=== PATIENT | female | born 2000 | race Caucasian/White ===

== ENCOUNTER 2025-04-27 15:09 | Emergency (ER) | payer OTHER, SELFPAY ==
--- OUTSIDE RECORDS SUMMARY | 2025-03-28 02:30 | XMS_ITS | Continuity of Care Document ---
Author Organization [facility] Address [address] [address] [place] [address] Phone Care Team Providers Care Clinical Specialty Rep Name Role Phone Arnoldo Nguyen DO Unavailable Unavailable Allergies, Adverse Reactions, Alerts Substance Reaction Status Criticality No Known Allergies Active No Inform ation Medications Medication Instructions Dosage Effective Dates (start - stop) Status Comments sertraline 100 mg tablet take 1 tablet by oral route every day 100 MG - Active dicyclomine 10 mg capsule take 1 capsule by oral route 3 times every day 10 MG - Active sertraline 50 mg tablet take 1 tablet by oral route every day 50 MG - No Longer Active Procedures Procedure Date Offic/outpt E&m [facility] Mod-hi 2 25 Colonoscopy Flex; W/bx 1/mx Level Iv-surg Path Gross/micro 25 Offic/outpt E&m New Mod-ne Routine Serum Collection Advance Directives Directive Yes / No Effective Date File Name No Information Encounters Encounter Description Practice Location Reason(s) For Visit Diagnoses Date Provider Providers Copied on Encounter Offic/outpt E&m [facility] Mod-hi 2 [facility], [address] [address], [place], [id number], tel:[phone] [facility] GI Symptoms or Concerns (chief complaint) RLQ abdominal painOther constipation Patrick Skelton. [address] [facility], [address], [place], [id number] , [place]. [phone] Referring Provider: Referral Self, USE FOR SELF REFERRALS. [facility] [place], [address] [address], [place], [id number], [place] tel:[phone] [facility] GI Symptoms or Concerns (chief complaint) Other constipationUnspeci fied abdominal painColorectal polypsBenign neoplasm of descending colonOther constipationUnspeci fied abdominal pain 5 Claudia Palomino. [address] [facility], [facility] [address], [place], [address], [place]. tel: [phone] Referring Provider: Referral Self, USE FOR SELF REFERRALS. [facility] [place], [address] [address], [place], [id number], [place] tel:[phone] [facility] No Information 5 Dandre Baum. [address] [address], [place], [id number] , [place]. tel:[phone] Offic/outpt E&m New Mod-hi [facility] [place], [address] [address], [place], [id number], [place] tel:[phone] [facility] GI Symptoms or Concerns (chief complaint) Intermittent constipationRight sided abdominal pain 4 Patrick Skelton. [address] [facility], [facility] [address], [place], [id number] , [place]. [phone] Referring Provider: Referral Self, USE FOR SELF REFERRALS. [facility] [place], [address] [address], [place], [id number], [place] tel:[phone] [facility] No Information 4 Dandre Baum. [address] [facility] [address], [place], [id number] , [place]. [phone] Family History Family Member Type Diagnosis Age At Onset Father Problem (finding) GERD Immunizations Vaccine Date Status Comments tetanus toxoid, reduced diphtheria toxoid, and acellular pertussis vaccine, adsorbed administered Note: [facility] b i-directional interface ; Source: Other Registry SARS-COV-2 (COVID-19) vaccin e, mRNA, spike protein, LNP, preservative free, 100 mcg/0.5mL dose or 50 mcg/0.25mL dose administered Note: [facility] bi -directional interface ; Source: Other Registry SARS-COV-2 (COVID-19) vaccin e, mRNA, spike protein, LNP, preservative free, 30 mcg/0.3mL dose administered Note: [facility] bi-direct ional interface ; Source: Other Registry SARS-COV-2 (COVID-19) vaccin e, mRNA, spike protein, LNP, preservative free, 30 mcg/0.3mL dose administered Note: [facility] bi-direct ional interface ; Source: Other Registry Human Papillomavirus 9-olya t vaccine administered Note: [facility] bi-direct ional interface ; Source: Other Registry Havrix pediatric administered Note: [facility] bi-directional interface ; Source: Other Registry meningococcal polysaccharide (groups A, C, Y and W-135) diphtheria toxoid conjugate vaccine (MCV4P) administered Note: [facility] bi-direct ional interface ; Source: Other Registry tetanus toxoid, reduced diphtheria toxoid, and acellular pertussis vaccine, adsorbed administered Note: [facility] b i-directional interface ; Source: Other Registry meningococcal oligosaccharid e (groups A, C, Y and W-135) diphtheria toxoid conjugate vaccine (MCV4O) administered Note: [facility] bi-direct ional interface ; Source: Other Registry human papilloma virus vaccin e, quadrivalent administered Note: [facility] bi-direct ional interface ; Source: Other Registry Havrix administered Note: [facility] bi-d irectional interface ; Source: Other Registry diphtheria, tetanus toxoids and pertussis vaccine administered Note: [facility] bi-direct ional interface ; Source: Other Registry measles, mumps, rubella, and varicella virus vaccine administered Note: [facility] bi-di rectional interface ; Source: Other Registry poliovirus vaccine, inactivated administe red Note: [facility] bi- directional interface ; Source: Other Registry diphtheria, tetanus toxoids and pertussis vaccine administered Note: [facility] bi-direct ional interface ; Source: Other Registry diphtheria, tetanus toxoids and acellular pertussis vaccine administered Note: [facility] b i-directional interface ; Source: Other Registry poliovirus vaccine, inactivated administe red Note: [facility] bi- directional interface ; Source: Other Registry poliovirus vaccine, inactivated administe red Note: [facility] bi- directional interface ; Source: Other Registry diphtheria, tetanus toxoids and acellular pertussis vaccine administered Note: [facility] b i-directional interface ; Source: Other Registry Haemophilus influenzae type b conjugate and Hepatitis B vaccine administered Note: [facility] bi- directional interface ; Source: Other Registry Pneumovax administered Note: [facility] bi-d irectional interface ; Source: Other Registry measles, mumps and rubella v irus vaccine administered Note: [facility] bi-direct ional interface ; Source: Other Registry varicella virus vaccine administered Note : [facility] bi-directional interface ; Source: Other Registry Pneumovax administered Note: [facility] bi-d irectional interface ; Source: Other Registry Engerix-B administered Note: [facility] bi-d irectional interface ; Source: Other Registry poliovirus vaccine, inactivated administe red Note: [facility] bi- directional interface ; Source: Other Registry Pneumovax administered Note: [facility] bi-d irectional interface ; Source: Other Registry Haemophilus influenzae type b vaccine, PRP-T conjugate administered Note: [facility] bi-d irectional interface ; Source: Other Registry diphtheria, tetanus toxoids and acellular pertussis vaccine administered Note: [facility] b i-directional interface ; Source: Other Registry Engerix-B administered Note: [facility] bi-d irectional interface ; Source: Other Registry Pneumovax administered Note: [facility] bi-d irectional interface ; Source: Other Registry poliovirus vaccine, inactivated administe red Note: [facility] bi- directional interface ; Source: Other Registry diphtheria, tetanus toxoids and acellular pertussis vaccine administered Note: [facility] b i-directional interface ; Source: Other Registry Haemophilus influenzae type b vaccine, PRP-T conjugate administered Note: [facility] bi-d irectional interface ; Source: Other Registry Payers Payer name Insurance type Covered democrat ID Maria A keita(carola Cruz [id number] Social History Type Description Quantity Date Captured Comments Alcohol Use Details Unknown Caffeine Use Details Unknown Tobacco Use Status No Information Smoking Status No Information Sex Female Vital Signs Date / Time: Height Weight BMI Pulse Rate Blood Pressure Temperature Respiratory Rate Body Surface Area Head Circumference Head Circ. Percentile Wt./Magnus. Percentile BMI percentile Pulse Ox Inhaled Ox 7:35 AM 66.00 in 132.222 kg (291.50 lbs) 47.0 5 kg/m eter (2) 73 /min 136/63 mm[Hg] Chief Complaint And Reason For Visit From encounter dated '03/28/2025 07:30'. GI Symptoms or Concerns (chief complaint). Description: This is a pleasant 25-year-old female established patient returning for follow-up of constipation and right lower quadrant discomfort. Patient was last seen in September of last year after which time she had some basic labs completed which wereunremarkable. She did underwent a colonoscopy in November of this year which was notable for a subcentimeter adenomatous polyp but was otherwise endoscopically unremarkable. Since her last appointmentshe has continued a high-fiber diet and use of MiraLAX and with this is having on average 2 bowel movements per day. She is not appreciating any straining and rarely any incomplete evacuation. The stool is not hard or pebble-like either. Despite the improvement in the bowel movements, whereas previously she could go 1 week without a bowel movement, she still has ongoing right lower quadrant abdominal pain. It remains intermittent but generally occurs daily. As previously noted it can radiate into the right upper quadrant can also radiate into the back and down into the leg. She did try peppermint oil but this was an abbreviated trial due to increased heartburn symptoms when taking it.As noted her previous appointment she has undergone extensive evaluation including CT scan and ultrasound in addition to multiple other labs and evaluation of her symptoms and have been unremarkable. Reason For Referral Reason For Referral No Information Plan Of Treatment Date Type Action Status Referral Ordered: Colonoscopy Appointment date/timeframe: 11/30/2024 ordered History Of Present Illness Encounter Date Complaint History Of Prese nt Illness GI Symptoms or Concerns This is a pleasant 25-year-old female established patient returning for follow-up of constipation and right lower quadrant discomfort. Patient was last seen in September of last year after which time she had some basic labs completed which were unremarkable. She did underwent a colonoscopy in November of this year which was notable for a subcentimeter adenomatous polyp but was otherwise endoscopically unremarkable. Since her last appointment she has continued a high-fiber diet and use of MiraLAX and with this is having on average 2 bowel movements per day. She is not appreciating any straining and rarely any incomplete evacuation. The stool is not hard or pebble-like either. Despite the improvement in the bowel movements, whereas previously she could go 1 week without a bowel movement, she still has ongoing right lower quadrant abdominal pain. It remains intermittent but generally occurs daily. As previously noted it can radiate into the right upper quadrant can also radiate into the back and down into the leg. She did try peppermint oil but this was an abbreviated trial due to increased heartburn symptoms when taking it.As noted her previous appointment she has undergone extensive evaluation including CT scan and ultrasound in addition to multiple other labs and evaluation of her symptoms and have been unremarkable. GI Symptoms or Concerns GI Symptoms or Concerns This is a pleasant 24-year-old female who self refers for evaluation of constipation and right-sided abdominal discomfort. Patient reports that for the past 6 weeks she has been struggling with constipation. She reports a baseline bowel habit of 2-3 bowel movements per day. However in early August she started appreciating 5-6 bowel movements per day and then all of a sudden she stopped going. She went almost 2 weeks with out a bowel movement and to compensate started using [id number] laxatives. Unfortunately she then developed significant right-sided abdominal pain that worsened over time prompting an ER visit in [place] and those records were reviewed. She did end up getting an abdominal x-ray and CT scan showing no acute findings or concerns. For her symptoms she did try magnesium citrate but did not like the way this made her body feel. She tried milk of magnesia with no change. She is now using MiraLAX 1 capful twice daily and consuming 25 to 35 g/day along with 120 ounces of water. This has helped regarding the bowel movements and is having more regularity, good volume, and soft stool. She does however report continued difficulty getting the stool out and sometimes feels as though it is trapped in the pelvis. She will have some incomplete evacuation and feels the caliber of the stool has changed as well.She still experiences right-sided abdominal discomfort. This comes and goes and does not really change with passage of gas. She may note slight improvement after bowel movement and then within minutes reoccurs. The discomfort is generally in the right lower quadrant but can radiate into the right upper quadrant, to the lower back, and down the right leg. She did have a TSH and fecal calprotectin completed through her primary office that she reports is being normal. She also completed a bowel purge which she felt was helpful but did not affect the discomfort. She has never had a colonoscopy. Functional Status Date Functional Assessmen t No Information Instructions Date Instruction Additional Infor jude Colon Polyps Related to Color ectal polyps Colon Cancer Prevention Related to Colorectal polyps Colon Polyps Related to Color ectal polyps Assessments Type Assessment Date assessment RLQ abdominal pain assessment Other constipation impression This is a pleasant [age]-year-old female with a history of constipation and right lower quadrant abdominal pain. Fortunately we have made significant improvements regarding her bowel habits both in terms of frequency, consistency, and Evac patient but unfortunately the pain syndrome still persist. This very well could suggest that the 2 symptoms are not directly related to each other. With the pain syndrome rating into the leg this is also atypical for most visceral abdominal pain syndromes. We will however try dicyclomine at this time but should this not improve her symptoms I have recommended that she follow-up with her primary to consider spinal evaluation or other potential neurological or neuromuscular cause. Patient Care Teams Name Effective Dates (start - stop) Status Members No Information
[2025-04-27] VITALS (13 sets, daily range): BP systolic 97–136; BP diastolic 43–83; PULSE 73–84; RESP 10–32; TEMP 36.7; O2SAT 99–100; BMI 47.8
--- NOTE | 2025-04-27 16:02 | CRLHL7_ITS ---
For Patients: As a result of the Cures Act, medical imaging exams and procedure reports are released immediately into your electronic medical record. You may view this report before your referring provider. If you have questions, please contact your health care provider. INDICATION: : CHEST PAIN COMPARISON: None TECHNIQUE: Two view(s) of the chest FINDINGS: The cardiomediastinal silhouette and pulmonary vasculature are unremarkable. There is no focal airspace consolidation, pleural effusion, or pneumothorax. No displaced fractures. IMPRESSION: No acute cardiopulmonary process. Dictated by Moy Rizzo MD @ 04/27/2025 5:05:27 PM (Electronically Signed)
--- NOTE | 2025-04-27 16:23 | ED_ITS ---
HPI - Chest Pain General Date Seen: 04/27/25 Chief Complaint: Chest Pain Stated Complaint: Chest pain, short of breath Time Seen by Provider: 04/27/25 15:34 Source: patient Mode of arrival: ambulatory Limitations: no limitations History of Present Illness HPI narrative: Patient is a 25-year-old female presenting to the emergency department for chest pain. She has been having chest pain for the past 2 weeks but felt acutely get worse today while she was driving. States the pain radiated to her right arm and neck and she got dizzy. Due to this she decided to come in to get checked out. States currently the pain is a 6/10. Does seem improved compared to when she was driving. Denies symptoms like this before. Does notice some pain in her chest when she presses on it. No history of heart disease. No recent surgeries. Denies history of cancer. Denies history of blood clots. Denies hemoptysis, abdominal pain, weakness, numbness, headache, vision changes, hormone use, diarrhea, constipation, lower extremity swelling. No other concerns noted at this time. Related Data Home Medications ?Medication ?Instructions ?Recorded ?Confirmed omeprazole .ROUTE 04/27/25 sertraline .ROUTE 04/27/25 Allergies Allergy/AdvReac Type Severity Reaction Status Date / Time No Known Drug Allergies Allergy Verified 04/27/25 15:26 Review of Systems Status of ROS Reports: 10 or more systems reviewed and unremarkable except as noted in History and below Exam Narrative Exam Narrative: Const: Well-nourished, Well-developed, in mild distress Eyes: PERRL, no conjunctival injection, and symmetrical lids HENT: Atraumatic external nose and ears. Moist mucous membranes. Neck: Symmetric, trachea midline, No thyromegaly. CVS: RRR, No murmurs or gallops. Peripheral pulses 2+ and equal in all extremities RESP: Unlabored respiratory effort. Clear to auscultation bilaterally. GI: Nontender/Nondistended, No rebound or guarding. MSK:Extremities w/o deformity, Normal Active ROM, tenderness to palpation of her chest that exactly reproduces her pain. Skin: Warm, Dry. No rashes or lesions. Neuro: Normal Muscle tone, No focal neurological deficits. Psych: Awake, Alert, & Oriented x3. Appropriate mood and affect. Const Vital Signs, click to edit/add: Vital Signs - 24 hr 04/27/25 15:23 04/27/25 16:48 04/27/25 17:23 Temperature 98.1 F Pulse Rate 80 Pulse Rate [Pulse Oximeter] 81 Respiratory Rate 20 12 12 Blood Pressure 123/64 Blood Pressure [Right Upper Arm] 136/83 Pulse Oximetry 99 100 Oxygen Delivery Method Room Air Course Vital Signs Vital signs: Initial Vital Signs Temperature 98.1 F 04/27/25 15:23 Temperature Source Temporal Artery Scan 04/27/25 15:23 Pulse Rate 81 04/27/25 15:23 Respiratory Rate 20 04/27/25 15:23 Blood Pressure 136/83 04/27/25 15:23 Blood Pressure Mean 100 04/27/25 15:23 Blood Pressure Position Sitting 04/27/25 15:23 Pulse Oximetry 99 04/27/25 15:23 Oxygen Delivery Method Room Air 04/27/25 15:23 Vital Signs Temperature 98.1 F 04/27/25 15:23 Pulse Rate 81 04/27/25 15:23 Respiratory Rate 20 04/27/25 15:23 Blood Pressure 136/83 04/27/25 15:23 Pulse Oximetry 99 04/27/25 15:23 Oxygen Delivery Method Room Air 04/27/25 15:23 Temperature 98.1 F 04/27/25 15:23 Pulse Rate 80 04/27/25 17:23 Respiratory Rate 12 04/27/25 17:23 Blood Pressure 123/64 04/27/25 17:23 Pulse Oximetry 100 04/27/25 17:23 Oxygen Delivery Method Room Air 04/27/25 15:23 MDM - Chest Pain MDM Narrative Medical decision making narrative: Patient is a 25-year-old female presenting to the emergency department for chest pain. The differential diagnosis of chest pain is broad and includes common etiologies such as musculoskeletal strain, GERD, pneumonia, etc. More serious etiologies considered include PE, coronary artery disease, pneumothorax, aortic dissection, aortic aneurysm. Pain is reproducible with palpation which makes costochondritis more likely. She is PERC negative and PE can not be ruled out. Will do an EKG and troponin along with COVID/flu/RSV, magnesium, CBC, BMP and a urine test. Will also do a chest x-ray. Lab work returned showing no acute concerning abnormalities. Viral swab is negative. EKG and troponin showed no concerning findings. Chest x-ray reviewed by myself the radiologist shows no concerning findings. Again her chest pain was reproduced exactly with palpation. This is most likely costochondritis. I believe she is safe for discharge and she is agreeable to this plan. Lab Data Labs: Lab Results 04/27/25 04/27/25 04/27/25 Range/Units 16:02 16:30 16:40 WBC 7.23 (4.50-11.00) K/uL RBC 5.15 (4.00-5.20) m/uL Hgb 14.0 (12.0-16.0) gm/dL Hct 42.8 (33.0-51.0) % MCV 83 (80-100) fL MCH 27 (26-34) pg MCHC 33 (32-36) gm/dL RDW Coeff of [place] 12.8 (11.5-15.5) % Plt Count 354 (140-440) K/uL Neut % (Auto) 67.6 (42.0-72.0) % Lymph % (Auto) 23.2 (20-44) % [place] % (Auto) 7.7 (0.0-11.0) % Eos % (Auto) 1.0 (0.0-7.0) % Baso % (Auto) 0.4 (0.0-3.0) % Neut # (Auto) 4.88 (1.7-7.0) K/uL Lymph # (Auto) 1.68 (0.90-2.90) K/uL [place] # (Auto) 0.60 (0.00-0.90) K/UL Eos # (Auto) 0.07 (0.00-0.50) K/uL Baso # (Auto) 0.03 (0.00-0.30) K/uL Abs Immat Gran (auto) 0.01 (0.00-0.30) K/uL Imm/Tot Granulo (auto) 0.1 % Sodium 138 (135-149) mmol/L Potassium 3.8 (3.6-5.1) mmol/L Chloride 105 (96-114) mmol/L Carbon Dioxide 26 (20-32) mmol/L Anion Gap 7 (7-15) mEq/L BUN 13 (5-24) mg/dL Creatinine 0.9 (0.5-1.5) mg/dL Estimated Creat Clear 91.01 Estimated GFR 92 ml/min Glucose 107 (60-115) mg/dL Calcium 9.5 (8.4-10.6) mg/dL Magnesium 2.0 (1.5-2.6) mg/dL Urine Color Yellow (Yellow) Urine Appearance Clear (Clear) Urine pH 5.5 (5.0-8.5) Ur Specific [place] <= 1.005 (1.000-1.030) Urine Protein Negative (Negative) Urine Glucose (UA) Negative (Negative) Urine Ketones Negative (Negative) Urine Blood Negative (Negative) Urine Nitrite Negative (Negative) Urine Bilirubin Negative (Negative) Urine Urobilinogen 0.2 (0.2-1.0) Ur Leukocyte Esterase Negative (Negative) Urine RBC 0-2 (0-2) Urine WBC 0-2 (0-5) Ur Squamous Epith Cells None (None-Few) Urine Bacteria None (None) Urine HCG, Qual Negative (Negative) SARS-CoV-2 (PCR) Negative SARS-CoV-2 (Negative) Influenza Type A (PCR) Negative PCR FLU A (Negative) Influenza Type B (PCR) Negative PCR FLU B (Negative) RSV (PCR) Negative PCR RSV (Negative) POC Troponin I 0.00 L (0.01-0.04) ng/ml Imaging Data Chest x-ray: Attestation: I have reviewed the pertinent imaging results. Radiologist's impression: No acute cardiopulmonary process. Dictated by Moy Rizzo MD @ 04/27/2025 5:05:27 PM ECG Data Attestation: I personally reviewed and interpreted this ECG as follows: Prior ECG tracings: not available for review Interpretation: Normal sinus rhythm with a rate of 75 beats per minute, normal intervals, normal axis, no ST or T-wave abnormalities. Discharge Plan Discharge Clinical Impression: Costal chondritis Patient Disposition: Home, Self-Care Condition: Stable Instructions: Costochondritis (ED) Additional Instructions: I believe you pain is musculoskeletal in nature considering your pain is reproduced with palpation. Rest of your workup looks normal. I do recommend close follow-up with her primary care provider if symptoms persist. Return to emergency department for new or worsening symptoms Prescriptions: No Action sertraline .ROUTE omeprazole .ROUTE Follow Up/Referrals: Provider,Not a Local [Primary Care Provider, Family Practice] Stand Alone Forms: [employer] Info Instructions
--- OUTSIDE RECORDS SUMMARY | 2025-04-27 16:23 | XMS_ITS | Clinical Summary ---
Author Organization [facility] Address [address] [place] [address] Care Team Providers Care Track Service Worker Name Role Phone Candis Rosado MD Primary Care Provide r Amilcar Hernandez PA-C Unavailable Candis Rosado MD Unavailable Alcides Daugherty MD Unavailable [phone] Allergies No known active allergies Medications hydrOXYzine HCl (ATARAX) 10 MG tabletIndicatio ns:NATHAN (generalized anxiety disorder),Psych ophysiological insomnia TAKE 1 TO 3 TABLETS(10 TO 30 MG) BY MOUTH THREE TIMES DAILY NEEDED FOR ANXIETY OR SLEEP 90 tablet 2 4 Active fish oil-omega-3 fatty acids 500 MG capsule Take by mouth. Acti ve UNABLE TO FIND MEDICATION NAME: Acetyl L Carnitine (third alliance party tested) and Olli pre/pro biotics for constipation Active sertraline (ZOLOFT) 100 MG tabletIndicatio ns:NATHAN (generalized anxiety disorder) Take 1 tablet (100 mg) by mouth daily. 90 tablet 1 5 Active Active Problems Problem Noted Date Diagnosed Date Right sided abdominal pain 12/20/2024 Tubular adenoma 11/2024 3mm resected; f/u in 5 yr 12/07/2024 Pelvic pain in female 10/25/2024 Chronic constipation 11/26/2023 Frequent headaches 11/26/2023 Class 3 severe obesity due t o excess calories without serious comorbidity with body mass index (BMI) of 45.0 to 49.9 in adult 07/13/2019 Resolved Problems Problem Noted Date Diagnosed Date Resolved Date Benign neoplasm of descending colon 12/02/2024 12/20/2024 Polyp of colon 11/30/2024 12/20/2024 Major Depression, Recurrent 11/26/2023 Overview (05/25/2021): Created by Conversion Replacement Utility updated for latest IMO load Encounters Date Type Department Care Team Description 02/22/2025 11:30 AM CDT Virtual Visit [facility] [address] [place] [phone] Candis Rosado MD NATHAN (generalized anxiety disorder) (Primary Dx); Chronic pelvic pain in female; RLQ abdominal pain; Chronic constipation from Last 3 Months Immunizations Immunization Administration Dates Next Due COVID-19 MONOVALENT 12+ (Pfizer) 03/16/2021,01/23 Comvax (HIB/HepB) 06/24/2003 DTAP (<7y) 01/23/2005, 3,2002,03/01 DTaP, Unspecified 03/02/2007, 5,06/24/2003,07/16,2002 HIB (PRP-T) 06/24/2003,2002,2002 HIB, Unspecified 06/24/2003 HPV Quadrivalent 07/06/2014 HPV9 (Gardasil) 07/12/2019 HepA, Unspecified 07/06/2014 HepB, Unspecified 06/24/2003,2002,03/01/20 02 Hepatitis A (VAQTA)(ADULT 19+) 07/06/2014 Hepatitis A (Vaqta/Havrix)(P eds 12m-18y) 07/12/2019 Hepatitis B, Adult (Energix-B/Recombivax HB) 2002,2002 Historical DTP/aP 06/24/2007,03/02/2007 MMR (MMRII) 03/02/2007,05/04/2003 MMR/V (Proquad) 03/02/2007 Meningococcal ACWY (Menactra ) 07/12/2019,07/06/2014 Meningococcal ACWY (Menveo ) 07/06/2014 Pneumococcal (PCV 7) 05/04/2003,11/03/20 02,2002,03/01 Poliovirus, inactivated (IPV) 03/02/2007 ,07/04/2003,06/24/2003,07/16,2002 TDAP (Adacel,Boostrix) 11/19/2024,07/06/2014 Varicella (Varivax) 03/02/2007,01/07/2003 Family History Medical History Relation Comments Obesity Father Anxiety Disorder Maternal Aunt Depression Maternal Aunt Cancer Maternal Grandfather Diabetes Maternal Grandfather Hyperlipidemia Maternal Grandfather Hypertension Maternal Grandfather Other - See Comments Maternal Grandfather Neurol ogical Disorder- CIPD Other Cancer Maternal Grandfather Arrhythmia Maternal Grandmother Diabetes Maternal Grandmother Obesity Maternal Grandmother Migraines Mother Obesity Mother Anxiety Disorder Paternal Aunt Depression Paternal Aunt Hypertension Paternal Aunt Coronary Artery Disease Paternal Grandfather Heart Disease Paternal Grandfather Alzheimer Disease Paternal Grandmother Cancer Paternal Grandmother thyroid Depression Paternal Grandmother Hyperlipidemia Paternal Grandmother Hypertension Paternal Grandmother Obesity Paternal Grandmother No Known Problems Sister Relation Status Comments Father Alive Maternal Aunt Alive Maternal Grandfather Alive Maternal Grandmother Alive Mother Alive Paternal Aunt Alive Paternal Grandfather Paternal Grandmother Alive Sister Alive Social History Tobacco Use Types Packs/Day Years Used Date Smoking Tobacco: Never Passive Smoke Exposure: Never Smokeless Tobacco: Never Tobacco Cessation:Counseling Given: No Alcohol Use Standard Drinks/Week Comments Not Currently 0 (1 standard drink = 0.6 oz pur e alcohol) Social Connection and Isolation Panel [NHANES] A nswer Date Recorded Frequency of Communication with Friends and Fami ly Not on file 11/19/2024 How often do you get together with friends or re latives? Never 11/19/2024 Attends Gnosticist Services Not on file 11/19 Active Member of Clubs or Organizations Not on f ile 11/19/2024 Attends Club or Organization Meetings Not on lisa e 11/19/2024 Marital Status Not on file 11/19/2024 PHQ-2 Answer Date Recorded PHQ-2 Score 0 02/22/2025 [place] of Occupat ional Health - Occupational Stress Questionnaire Answer Date Recorded Do you feel stress - tense, restless, nervous, or anxious, or unable to sleep at night because your mind is troubled all the time - these days? Rather much 11/19/2024 Exercise Vital Sign Answer Date Recorde d On average, how many days pe r week do you engage in moderate to strenuous exercise (like a brisk walk)? 5 days 11/19/2024 On average, how many minutes do you engage in exercise at this level? 60 min 11/19/2024 Adolescent Education Answer Date Record ed Getting School Help Needed Not on file 08/16 Food Insecurity Answer Date Recorded Within the past 12 months, d id you worry that your food would run out before you got money to buy more? No 11/19/2024 Within the past 12 months, d id the food you bought just not last and you didn t have money to get more? No 11/19/2024 Housing Stability Answer Date Recorded Do you have housing? (Terryin g is defined as stable permanent housing and does not include staying outside in a car, in a tent, in an abandoned building, in an overnight usp, or couch-surfing.) Yes 11/19/2024 Are you worried about losing your housing? No 11/19/2024 Financial Resource Strain Answer Date R ecorded Within the past 12 months, h ave you or your family members you live with been unable to get utilities (heat, electricity) when it was really needed? No 11/19/2024 Transportation Needs Answer Date Record ed Within the past 12 months, h as lack of transportation kept you from medical appointments, getting your medicines, non-medical meetings or appointments, work, or from getting things that you need? No 11/19/2024 Interpersonal Safety Answer Date Record ed Do you feel physically and e motionally safe where you currently live? Yes 11/19/2024 Within the past 12 months, h ave you been hit, slapped, kicked or otherwise physically hurt by someone? No 11/19/2024 Within the past 12 months, h ave you been humiliated or emotionally abused in other ways by your partner or ex-partner? No 11/19/2024 Comments No Sex and Gender Information Value Date Recorded Sex Assigned at Female 10/29/2023 6:24 PM TELEGRAPH REPEATER MECHANIC Legal Sex Female 5:28 PM CDT Gender Identity Female 10/29/2023 6:23 PM TELEGRAPH REPEATER MECHANIC Sexual Orientation Not on file Last Filed Vital Signs Vital Sign Reading Time Taken Comments Blood Pressure 109/74 11/19/2024 10:21 AM TELEGRAPH REPEATER MECHANIC Pulse 83 11/19/2024 10:21 AM TELEGRAPH REPEATER MECHANIC Temperature 36.6 C (97.9 F) 11/19/2024 10:21 AM TELEGRAPH REPEATER MECHANIC Respiratory Rate 16 11/19/2024 10:21 AM TELEGRAPH REPEATER MECHANIC Oxygen Saturation 100% 11/19/2024 10:21 AM TELEGRAPH REPEATER MECHANIC Inhaled Oxygen Concentration - - Weight 132 kg (290 lb 14.4 oz) 11/19/2024 10:21 AM TELEGRAPH REPEATER MECHANIC Height 167.6 cm (5' 6) 11/19/2024 10:21 AM TELEGRAPH REPEATER MECHANIC Body Mass Index 46.95 11/19/2024 10:21 AM TELEGRAPH REPEATER MECHANIC Plan of Treatment Upcoming Encounters Date Type Department Care Team (Late st Contact Info) Description 05/09/2025 12:30 PM CDT Office Visit [address] [phone] Candis Rosado MD [address] [place] [phone] Health Maintenance Due Date Last Done Comments CHLAMYDIA SCREENING 2002 CT COLONOGRAPHY 2002 FIT 2002 FLEX SIG 2002 sDNA (Cologuard) 2002 HIV SCREENING 2017 MENINGITIS B VACCINE (1 of 2 - Standard) 2018 HEPATITIS C SCREENING 2020 PAP 2023 COVID-19 VACCINE ( season) 2024 11/30/2021, 03/16/2021, 02/16/2021 INFLUENZA VACCINE (Season Ended) 2025 ANNUAL REVIEW OF HM ORDERS 11/19/2025 11/19/2024, YEARLY PREVENTIVE VISIT 11/19/2025 11/19/20 24, 11/26/2023, 04/04/2021, Additional history exists ADVANCE CARE PLANNING 11/19/2029 11/19/2024, 024 COLONOSCOPY 11/30/2029 11/30/2024, 11/30/2024 COLORECTAL CANCER SCREENING 11/30/2029 DTAP/TDAP/TD VACCINE (8 - Td or Tdap) 11/19/2034 11/19/2024, 07/06/2014, 06/24/2007, Additional history exists ZOSTER VACCINE (1 of 2) 2052 PNEUMOCOCCAL VACCINE: PEDIATRICS (0 to 5 YEARS) AND AT-RISK PATIENTS (6 to 49 YEARS) Aged Out 05/04/2003, 2002, 2002, Additional history exists No longer eligible based on patient's age to complete this topic HEPATITIS B VACCINE Completed 06/24/2003, 06/24/2003, 2002, Additional history exists HPV VACCINE Completed 07/12/2019, 07/06/2014 MENINGITIS VACCINE Completed 07/12/2019, 0 07/06/2014, 07/06/2014 PHQ-2 (once per calendar year) Completed 02/22/2025, 12/20/2024, 12/20/2024, Additional history exists Procedures Procedure Name Priority Date/Time Associated Diagnosis Comments COLONOSCOPY - HIM SCAN 11/30/2024 12:00 AM TELEGRAPH REPEATER MECHANIC from Last 3 Months or Most Recently Relevant to Health Maintenance Results * Colonoscopy - HIM Scan (11/30/2024 12:00 AM TELEGRAPH REPEATER MECHANIC) 11/30/2024 us Provider Outside PROCEDURES Final Result from Last 3 Months or Most Recently Relevant to Health Maintenance Insurance [facility] Care Teams Track Service Worker Relationship Specialty Start Date End Date Candis Rosado MD PCP - General 07/12/19 Amilcar Hernandez PA-C [id number] [place] [address] Physician Scheduling Specialist Gastroenterology 09/22/24 Candis Rosado MD [address] [place] [address] Assigned PCP 11/15/24 Alcides Daugherty MD [address] [address] Assigned OBGYN Provider 11/15/24
--- OUTSIDE RECORDS SUMMARY | 2025-04-27 16:23 | XMS_ITS | Encounter Summary ---
Author Organization [facility] Address [address] [place] [address] Care Team Providers Care Tank Calibrator Name Role Phone Candis Rosado MD Primary Care Provide r Amilcar Hernandez PA-C Unavailable Candis Rosado MD Unavailable [phone] Alcides Daugherty MD Unavailable [phone] Encounter Details Date Type Department Care Team (Late st Contact Info) Description 11/15/2024 MyC Medical Advice [address], [address] [place] [phone] Mariella Corea LPN Social History Tobacco Use Types Packs/Day Years Used Date Smoking Tobacco: Never Passive Smoke Exposure: Never Smokeless Tobacco: Never Alcohol Use Standard Drinks/Week Comments Not Currently 0 (1 standard drink = 0.6 oz pur e alcohol) Social Connection and Isolation Panel [NHANES] A nswer Date Recorded Frequency of Communication with Friends and Fami ly Not on file 11/19/2024 How often do you get together with friends or re latives? Never 11/19/2024 Attends Anabaptist Services Not on file 11/19 Active Member of Clubs or Organizations Not on f ile 11/19/2024 Attends Club or Organization Meetings Not on lisa e 11/19/2024 Marital Status Not on file 11/19/2024 PHQ-2 Answer Date Recorded PHQ-2 Score 2 11/19/2024 [place] of Occupat ional Health - Occupational Stress [...] Answer Date Recorded Do you have housing? ([place] is defined as stable permanent housing and does not include staying outside in a car, in a tent, in an abandoned building, in an overnight [place] [facility] facility, or couch-surfing.) Yes 11/19/2024 Are you worried [...] Sex Assigned at Female 10/29/2023 6:24 PM LECTURER IN COMPUTER SCIENCE Legal Sex Female 5:28 PM CDT Gender Identity Female 10/29/2023 6:23 PM LECTURER IN COMPUTER SCIENCE Sexual Orientation Not on file documented as of this encounter Plan of Treatment Upcoming Encounters Date Type Department Care Team (Late st Contact Info) Description 05/09/2025 12:30 PM CDT Office Visit [facility] [address] [place] [phone] Candis Rosado MD [address] [place] [address] documented as of this encounter Visit Diagnoses Not on filedocumented in this encounter Additional Health Concerns Assessment Noted Time PHQ-9 Depression Total Score: 9 09/27/20 24 5:35 AM LECTURER IN COMPUTER SCIENCE documented as of this encounter Care Teams Tank Calibrator Relationship Specialty Start Date End Date Candis Rosado MD PCP - General 07/12/19 Amilcar Hernandez PA-C [address] [place] [address] Physician Piece Dye Worker Gastroenterology 09/22/24 Candis Rosado MD [address] [place] [address] Assigned PCP 11/15/24 Alcides Daugherty MD [address] [address] Assigned OBGYN Provider 11/15/24 documented as of this encounter
--- OUTSIDE RECORDS SUMMARY | 2025-04-27 16:23 | XMS_ITS | Encounter Summary ---
Author Organization [facility] Address [address] [place] [address] Care Team Providers Care Jive Developer Name Role Phone Candis Rosado MD Primary Care Provide r Candis Rosado MD Unavailable Tonia Bauman METAL SANDER AND FINISHER Unavailable Amilcar Hernandez PA-C Unavailable Candis Rosado MD Unavailable [phone] Alcides Daugherty MD Unavailable [phone] Encounter Details Date Type Department Care Team (Late st Contact Info) Description [facility] Social History Tobacco Use Types Packs/Day Years Used Date Smoking Tobacco: Never Assessed Comments Unknown Sex and Gender Information Value Date Recorded Sex Assigned at Female 10/29/2023 6:24 PM PHOTOGRAMMETRIC STEREO COMPILER Legal Sex Female 5:28 PM CDT Gender Identity Female 10/29/2023 6:23 PM PHOTOGRAMMETRIC STEREO COMPILER Sexual Orientation Not on file documented as of this encounter Plan of Treatment Upcoming Encounters Date Type Department Care Team (Late st Contact Info) Description 05/09/2025 12:30 PM CDT Office Visit [facility] [address] [place] [phone] Candis Rosado MD [address] [place] [phone] documented as of this encounter Visit Diagnoses Not on filedocumented in this encounter Additional Health Concerns Assessment Noted Time PHQ-9 Depression Total Score: 2 04/18/20 21 6:13 PM CDT documented as of this encounter Care Teams Jive Developer Relationship Specialty Start Date End Date Candis Rosado MD PCP - General 07/12/19 Candis Rosado MD [address] [place] [address] Assigned PCP 05/09/21 12/05/23 Tonia Bauman CNP [address] [facility] [place] [address] Assigned PCP 12/06/23 11/14/24 Amilcar Hernandez PA-C [address] [place] [address] Physician Structural Iron Erector Gastroenterology 09/22/24 Candis Rosado MD [address] [place] [address] Assigned PCP 11/15/24 Alcides Daugherty MD [address] [facility] [address] [place] [address] Assigned OBGYN Provider 11/15/24 documented as of this encounter
--- OUTSIDE RECORDS SUMMARY | 2025-04-27 16:23 | XMS_ITS | Encounter Summary ---
Author Organization [place] Address [address] [place] [address] Care Team Providers Care Swing Saw Operator Name Role Phone Candis Rosado MD Primary Care Provide r Candis Rosado MD Unavailable Tonia Bauman RECRUITMENT SPECIALIST Unavailable Amilcar Hernandez PA-C Unavailable Candis Rosado MD Unavailable [phone] Alcides Daugherty MD Unavailable [phone] Encounter Details Date Type Department Care Team (Latest Contact Info) Description 01/29/2021 Historic Results Social History Tobacco Use Types Packs/Day Years Used Date Smoking Tobacco: Never Assessed Comments Unknown Sex and Gender Information Value Date Recorded Sex Assigned at Female 10/29/2023 6:24 PM 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 Legal Sex Female 5:28 PM CDT Gender Identity Female 10/29/2023 6:23 PM 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 Sexual Orientation Not on file documented as of this encounter Plan of Treatment Upcoming Encounters Date Type Department Care Team (Late st Contact Info) Description 05/09/2025 12:30 PM CDT Office Visit [facility] [address] [place] [phone] Candis Rosado MD [address] [place], [place] [phone] documented as of this encounter Visit Diagnoses Not on filedocumented in this encounter Additional Health Concerns Assessment Noted Time PHQ-9 Depression Total Score: 14 021 4:04 PM CDT documented as of this encounter Care Teams Swing Saw Operator Relationship Specialty Start Date End Date Candis Rosado MD PCP - General 07/12/19 Candis Rosado MD [address] [place] [address] Assigned PCP 05/09/21 12/05/23 Tonia Bauman CNP [id number] [facility] [address] Assigned PCP 12/06/23 11/14/24 Amilcar Hernandez PA-C [id number] [place] [address] Physician Top Taper Machine Gastroenterology 09/22/24 Candis Rosado MD [address] [place] [address] Assigned PCP 11/15/24 Alcides Daugherty MD [address] [facility] [address] [place] [address] Assigned OBGYN Provider 11/15/24 documented as of this encounter
[2025-04-27 16:34] LABS: Basophils Absolute Auto 0.03 K/uL (0.00-0.30); Basophils Percent Auto 0.4 % (0.0-3.0); Eosinophils Absolute Auto 0.07 K/uL (0.00-0.50); Hematocrit 42.8 % (33.0-51.0); Immature Granulocytes Abs Auto 0.01 K/uL (0.00-0.30); Immature Granulocytes Pct Auto 0.1 %; Lymphocytes Absolute Auto 1.68 K/uL (0.90-2.90); Lymphocytes Percent Auto 23.2 % (20-44); Mean Corpuscular HGB Conc 33 gm/dL (32-36); Mean Corpuscular Hemoglobin 27 pg (26-34); Mean Corpuscular Volume 83 fL (80-100); Monocytes Percent Auto 7.7 % (0.0-11.0); Neutrophils Absolute Auto 4.88 K/uL (1.7-7.0); Neutrophils Percent Auto 67.6 % (42.0-72.0); Platelet Count* 354 K/uL (140-440); RDW Coefficient of Variation % 12.8 % (11.5-15.5); Red Blood Count 5.15 m/uL (4.00-5.20); White Blood Count* 7.23 K/uL (4.50-11.00)
[2025-04-27 16:37] LABS: Slide Review Reflex No
[2025-04-27 16:48] LABS: Appearance Urine Clear (Clear); Bilirubin Urine Negative (Negative); Blood Urine Negative (Negative); Color Urine Yellow (Yellow); Glucose Urine Negative (Negative); Ketones Urine Negative (Negative); Leukocyte Esterase Urine Negative (Negative); Nitrite Urine Negative (Negative); Protein Urine Negative (Negative); Specific Gravity Urine <= 1.005 (1.000-1.030); Urobilinogen Urine 0.2 (0.2-1.0); pH Urine 5.5 (5.0-8.5)
[2025-04-27 16:54] LABS: RBC Urine 0-2 (0-2); WBC Urine 0-2 (0-5)
[2025-04-27 16:55] LABS: Ur HCG Qualitative* Negative (Negative)
[2025-04-27 17:16] LABS: Chloride* 105 mmol/L (96-114)
[2025-04-27 17:17] LABS: Potassium* 3.8 mmol/L (3.6-5.1); Sodium* 138 mmol/L (135-149)
[2025-04-27 17:19] LABS: Blood Urea Nitrogen* 13 mg/dL (5-24); Creatinine* 0.9 mg/dL (0.5-1.5); Est. Creatinine Clearance* 91.01; Estimated Glomerular Filt Rate 92 ml/min
[2025-04-27 17:20] LABS: Anion Gap 7 mEq/L (7-15); Calcium* 9.5 mg/dL (8.4-10.6); Carbon Dioxide* 26 mmol/L (20-32); Glucose* 107 mg/dL (60-115)
[2025-04-27 18:25] LABS: PCR FLU A Negative PCR FLU A (Negative); PCR FLU B Negative PCR FLU B (Negative); PCR RSV Negative PCR RSV (Negative); SARS PCR* Negative SARS-CoV-2 (Negative)
== END 2025-04-27 18:57 | disposition home or self-care (01) ==
PROVIDERS: Emergency Provider Student in an Organized Health Care Education/Training Program
DX: M94.0 Chondrocostal junction syndrome [Tietze] (principal); R06.02 Shortness of breath
CPT/HCPCS: 36415; 71046; 80048; 81001; 81025; 83735; 84484; 85025; 87631; 93005; 99284